=== PATIENT | male | born 1940 | race Caucasian/White ===

== ENCOUNTER → 2016-08-31 | Outpatient (CLI) | payer MEDICARE, BC | LOC: KOH-I 08-30 11:00 | DX: I70.213 Atherosclerosis of native arteries of extremities with intermittent claudication, bilateral legs (principal); I73.89 Other specified peripheral vascular diseases | CPT/HCPCS: 93925 ==

== ENCOUNTER 2020-08-25 15:47 | Emergency (ER) | payer MEDICARE, BC ==
[~2020-08-25 15:47] MED LIST: ALENDRONATE SOD35 MG PO; CELLCEPT500 MG PO; IBU800 MG PO; NEURONTIN 300300 MG PO; NORVASC10 MG PO; PRINIVIL10 MG PO; PROGRAF1 MG PO
[2020-08-25 17:20] LABS: RED BLOOD COUNT 5.43 M/UL (4.20-5.50)
[2020-08-25 17:43] LABS: BUN/CREATININE RATIO 13 (0-10)
[2020-08-25] MEDS ORDERED: ZOFRAN ODT 4 MG4 MG GT (22:53)
[2020-08-25] MEDS ORDERED: OMNICEF 300 MG300 MG PO (22:53)
[2020-08-25] MEDS ORDERED: BMP (22:54)
== END 2020-08-25 23:13 | disposition home or self-care (01) ==
LOC: ER1 15:47
PROVIDERS: Family Medicine
DX: N39.0 Urinary tract infection, site not specified (principal); R19.7 Diarrhea, unspecified; I10 Essential (primary) hypertension
CPT/HCPCS: 71045; 80048; 80053; 81001; 82150; 82550; 82553; 83605; 83690; 83874; 84484; 85025; 85610; 85730; 93005; 96374; 96375; 96376; 99284; J0696; J2405; J7040

== ENCOUNTER → 2020-09-04 | Outpatient (CLI) | payer MEDICARE, BC ==
[~2020-09-04] MED LIST changes: +BMP; +OMNICEF 300 MG300 MG PO; +ZOFRAN ODT 4 MG4 MG GT
== END ==
LOC: KOH-I 15:20
DX: I12.9 Hypertensive chronic kidney disease with stage 1 through stage 4 chronic kidney disease, or unspecified chronic kidney disease (principal); N18.30 Chronic kidney disease, stage 3 unspecified; R93.422 Abnormal radiologic findings on diagnostic imaging of left kidney; R93.421 Abnormal radiologic findings on diagnostic imaging of right kidney
CPT/HCPCS: 76775

== ENCOUNTER → 2020-12-17 | Outpatient (CLI) | payer MEDICARE, BC | LOC: EXRD 12-16 13:30 → KOH-I 13:30 | DX: M85.80 Other specified disorders of bone density and structure, unspecified site (principal); Z79.899 Other long term (current) drug therapy | CPT/HCPCS: 77080 ==